=== PATIENT | female | born 1950 | race Caucasian/White ===

== ENCOUNTER 2025-06-04 11:57 | Emergency (ER) | payer MEDICARE, OTHER, SELFPAY ==
[2025-06-04 12:05] VITALS: BP 180/92; PULSE 61; TEMP 36.8; O2SAT 99; BMI 29.1
--- OUTSIDE RECORDS SUMMARY | 2025-06-04 12:12 | XMS_ITS | Encounter Summary ---
Author Organization [facility] Address [address] [place] [address] Care Team Providers Care Database Engineer Name Role Phone Katya Sepulveda MD Unavailable Katya Sepulveda MD Primary Care Provider [phone] Reason for Visit * ReasonCommentsMed Refill Encounter Details DateTypeDepartmentCare Team (Latest Contact Info)Lkzebkpflia12/19/2025Refill [facility] [address] [place] [id number] Katya Sepulveda MD [address] [place] [address] Primary hypertension Social History Tobacco UseTypesPacks/DayYears UsedDateSmoking Tobacco: NeverSmokeless Tobacco: NeverAlcohol UseStandard Drinks/WeekCommentsNever0 (1 standard drink = 0.6 oz pure alcohol)B1300 Health LiteracyAnswerDate RecordedHow often do you need to have someone help you when you read instructions, pamphlets, or other written material from your doctor or pharmacy?Never03/22/2024Social Connection and Isolation PanelAnswerDate RecordedIn a typical week, how many times do you talk on the phone with family, friends, or neighbors?More than three times a week 03/22/2024How often do you get together with friends or relatives?Patient pzejvrag50/19/2024How often do you attend confucianism or church services?Patient wuqgxuia82/19/2024ctive Member of Clubs or OrganizationsNot on file03/22/2024 How often do you attend meetings of the clubs or organizations you belong to? Patient hkkufowi95/19/2024re you , , , , never , or living with a partner?Rdoxytj6203/22/2024UDIT-CAnswerDate RecordedQ1: How often do you have a drink containing alcohol?Monthly or less03/22/2024Q2: How many drinks containing alcohol do you have on a typical day when you are drinking?Patient does not drink03/22/2024Q3: How often do you have six or more drinks on one occasion?Never03/22/2024[facility] [place] of Occupational Health - Occupational Stress QuestionnaireAnswerDate RecordedDo you feel stress - tense, restless, nervous, or anxious, or unable to sleep at night because yourmind is troubled all the time - these days?Only a oslmsn0203/22/2024Exercise Vital Sign AnswerDate RecordedOn average, how many days per week do you engage in moderate to strenuous exercise (like a brisk walk)?2 days03/22/2024On average, how many minutes do you engage in exercise at this level?20 min03/22/2024Housing Stability Vital SignAnswerDate RecordedIn the last 12 months, was there a time when you were not able to pay the mortgage or rent on time?No03/22/2024In the past 12 months, how many times have you moved where you were living? At any time in the past 12 months, were you homeless or living in a senior living (including now)?No03/22/2024CommentsNoSex and Gender InformationValue Date RecordedSex Assigned at FxmywMjnsel47/13/2024 9:10 AM EDTLegal SexFemale 10/16/2022 6:48 PM EDTGender GelkgncyHtacaa37/13/2024 9:10 AM EDTSexual BghlxxophlzXlusofpt42/13/2024 9:10 AM EDTdocumented as of this encounter Miscellaneous Notes * Telephone Encounter - Radha Fernandes NP - 05/22/2025 1:38 PM EDT NIKOLAY BOBBY, rx sent. documented in this encounter Plan of Treatment Not on file documented as of this encounter Visit Diagnoses Diagnosis Primary hypertension Unspecified essential hypertension documented in this encounter Care Teams Team MemberRelationshipSpecialtyStart DateEnd Date Katya Sepulveda MD [address] [place] [address] PCP - [facility]12/26/22 Katya Sepulveda MD [address] [place] [address] PCP - GeneralFamily Medicine03/23/24documented as of this encounter
--- OUTSIDE RECORDS SUMMARY | 2025-06-04 12:12 | XMS_ITS | Clinical Summary ---
Author Organization [facility] Address [address] [place] [address] Care Team Providers Care Hand Spray Operator Name Role Phone Katya Sepulveda MD Unavailable [phone] Katya Sepulveda MD Primary Care Provider [phone] Allergies Active AllergyReactionsCriticalityNoted DateCommentsAmoxicillin-Pot Clavulanate RjyeNuj8203/23/20245194Koalyscfsgmd22/20/2024 Other Reaction(s): breathing difficulty Medications MedicationSigDispense QuantityRefillsLast FilledStart DateEnd DateStatus atenolol (Tenormin) 25 MG tablet Indications:Primary hypertensionTake 1 tablet (25 mg) by mouth in the morning and 1 tablet (25 mg) before bedtime. 180 tablet ctive hydroCHLOROthiazide (HYDRODiuril) 12.5 MG tablet Indications:Primary hypertensionTake 1 tablet (12.5 mg) by mouth Daily 90 tablet ctive levothyroxine (Synthroid, Levoxyl) 112 MCG tablet Indications:Hypothyroidism, unspecified typeTAKE 1 TABLET BY MOUTH EVERY DAY 90 tablet 5Active losartan (Cozaar) 100 MG tablet Indications:Primary hypertensionTAKE 1 TABLET BY MOUTH EVERY DAY 90 tablet 1105Active losartan (Cozaar) 100 MG tablet Indications:Primary hypertensionTake 1 tablet (100 mg) by mouth Daily 90 tablet Discontinued Active Problems ProblemNoted DateDiagnosed DateEssential qeldvgvspbaw20/20/2024Hypothyroidism 03/23/2024ongenital thujybudtqy33/20/2024 Encounters DateTypeDepartmentCare JsoyRzzphfwpdfq26/19/2025Refill [facility] [address] [place] [address] Katya Sepulveda MD Primary ucdivwnjmozh36/14/2025Refill [facility] [address] [place] [address] Katya Sepulveda MD Primary hypertensionfrom Last 3 Months Social History Tobacco UseTypesPacks/DayYears UsedDateSmoking Tobacco: NeverSmokeless Tobacco: Never Tobacco Cessation:Counseling Given: Not Answered Alcohol UseStandard Drinks/WeekCommentsNever0 (1 standard drink = 0.6 [...] you get together with friends or relatives?Patient qggqwerh43/19/2024How often do you attend restorationism or druze services?Patient ywvomvlu49/19/2024ctive Member of Clubs or OrganizationsNot on file03/22/2024 How often do you attend meetings of the clubs or organizations you belong to? Patient rducrqil38/19/2024re you , , , , never , or living with a partner?Lhcogna2303/22/2024UDIT-CAnswerDate RecordedQ1: How often do you have a drink containing alcohol?Monthly or less03/22/2024Q2: How many drinks containing alcohol do you have on a typical day when you are drinking?Patient does not drink03/22/2024Q3: How often do you have six or more drinks on one occasion?Never03/22/2024[facility] [place] of Occupational Health - Occupational Stress QuestionnaireAnswerDate RecordedDo you feel stress - tense, restless, nervous, or anxious, or unable to sleep at night because yourmind is troubled all the time - these days?Only a rprekt9903/22/2024Exercise Vital Sign AnswerDate RecordedOn average, how many [...] were you homeless or living in a intermediate (including now)?No03/22/2024CommentsNoSex and Gender InformationValue Date RecordedSex Assigned at UcigkPbhfik70/13/2024 9:10 AM EDTLegal SexFemale 10/16/2022 6:48 PM EDTGender CdkhvukaDjzvtu60/13/2024 9:10 AM EDTSexual UhuekyvxppgXkkxapuk65/13/2024 9:10 AM EDT Last Filed Vital Signs Vital SignReadingTime TakenCommentsBlood Czvpemfa247/80003/23/2024 10:16 AM EDT Mrciq0780/20/2024 10:16 AM ABYXnwuevpwpda06.9 ??C (98.4 ??F)03/23/2024 10:16 AM EDTRespiratory Rate--Oxygen Ezzmfwsusd02%03/23/2024 10:16 AM EDTInhaled Oxygen Concentration--Rxpowi15.5 kg (190 lb 12.8 oz)03/23/2024 10:16 AM ULLPytfeg401.1 cm (5' 5 )03/23/2024 10:16 AM EDTBody Mass Index31.75003/23/2024 10:16 AM EDT Plan of Treatment Health MaintenanceDue DateLast DoneCommentsCT Nhuujhjigbpw1951Colonoscopy 1Colorectal Cancer Gvfjltvmt1951FIT-DNA1950FIT1950 FOBT1950 0446Npjatbbysbxnk1951neumococcal Vaccine: 65+ Years (1 of 2 - PCV)01/12/19704134Jkzbgjlme23, 01/02/2023Influenza Vaccine (#1) 2025 Procedures Procedure NamePriorityDate/TimeAssociated DiagnosisCommentsBI MAMMOGRAM SCREENING TOMOSYNTHESIS APDDDNEWJKyvfoof90/01/2023 8:14 AM EDT from Last 3 Months or Most Recently Relevant to Health Maintenance Results * Bilateral screening mammogram with tomosynthesis (01/02/2023 8:14 AM EDT) Anatomical RegionLateralityModalityBreastBilateralMammography Narrative Authorizing ProviderResult TypeResult StatusKatya Sepulveda MDIMG BI PROCEDURES Final Result from Last 3 Months or Most Recently Relevant to Health Maintenance [place] [id number] Care Teams Team MemberRelationshipSpecialtyStart DateEnd Date Katya Sepulveda MD [address] [place] [address] PCP - [facility]12/26/22 Katya Sepulveda MD [address] [place] [address] PCP - [facility]03/23/24
--- NOTE | 2025-06-04 13:58 | ED.BACK1 ---
HPI HPI - Back Pain/Injury General Chief Complaint: Extremity Problem, Nontraumatic Stated Complaint: LOWER EXTREMITY PAIN Time Seen by Provider: 06/04/25 13:44 Source: patient Mode of arrival: walk-in History of Present Illness HPI Narrative: cc - low back pain with radiation into right lower extremity Two days ago, the patient developed pain in the low back on the right - in the upper buttock. Shortly after she developed pain down into the right thigh. The symptoms have waxed and waned and she called the urgent care and asked for advice - they told her they could only give her motrin and recommended that she go to the ED. She took ibuprofen this morning around 930am. She said that the ibuprofen hasn't helped much. She denied bowel or bladder symptoms - neither incontinence or retention - and denied any leg weakness, numbness, tingling or paralysis. She denied any recent trauma, injury, fall, MVC or any activities that might have caused or contributed to these symptoms. Related Data Home Medications ?Medication ?Instructions ?Recorded ?Confirmed atenolol 25 mg tablet 25 mg PO DAILY 06/04/25 06/04/25 hydrochlorothiazide 12.5 mg tablet 12.5 mg PO DAILY 06/04/25 06/04/25 levothyroxine 112 mcg tablet 112 mcg PO DAILY 06/04/25 06/04/25 losartan 100 mg tablet 100 mg PO DAILY 06/04/25 06/04/25 Previous Rx's ?Medication ?Instructions ?Recorded methocarbamol 750 mg tablet 750 mg PO Q6H PRN pain #30 tabs 06/04/25 methylprednisolone 4 mg tablets in 4 mg PO DAILY #21 ea 06/04/25 a dose pack (Medrol (Edson)) Allergies Allergy/AdvReac Type Severity Reaction Status Date / Time amoxicillin (From Augmentin) Allergy Severe Hives Verified 06/04/25 12:53 clavulanic acid (From Allergy Severe Hives Verified 06/04/25 12:53 Augmentin) PFSH PFSH Social History Little interest or pleasure in doing things: not at all Feeling down, depressed, or hopeless: not at all Exam Narrative Exam Narrative: General:Alert, no acute distress, patient resting comfortably Skin:warm, intact, no pallor noted Head:Normocephalic, atraumatic Eye:Normal conjunctiva Respiratory:No acute distress Abdomen:Normal bowel sounds, soft, nontender, no masses detected. No rebound, guarding, or rigidity noted. Back: inspection of the back shows no obvious deformity, no swelling, no ecchymosis, contusion, abrasion, swelling, erythema, fluctuance or induration. Tenderness noted to right superior buttock and right lower paralumbar area near the SI joint. Straight leg raise on left is negative. Straight leg raise on right is negative. No CVA tenderness noted bilaterally. Musculoskeletal: No deformity noted to bilateral lower extremities.no cyanosis or mottling noted. normal pulses at DP and PT 2+ bilaterally and symmetrically.Normal 5/5 strength at ankles with dorsiflexion and plantar flexion. Patient is able to ambulate. Normal sensation noted to both lower extremities. Neurological: AAOx4, normal sensory and motor observed -symmetrical bilaterally. L5-S1 reflexes intact symmetrically. DTR 2+ at patellar bilaterally. Psychiatric:Cooperative and interactive. Constitutional Vital Signs, click to edit/add: Last Vital Signs Temp 98.2 F 06/04/25 12:05 Pulse 61 06/04/25 12:05 Resp 18 06/04/25 12:05 BP 180/92 H 06/04/25 12:05 Pulse Ox 99 06/04/25 12:05 O2 Del Method Room Air 06/04/25 12:05 Course Vital Signs Vital signs: Vital Signs Temperature 98.2 F 06/04/25 12:05 Pulse Rate 61 06/04/25 12:05 Respiratory Rate 18 06/04/25 12:05 Blood Pressure 180/92 H 06/04/25 12:05 Pulse Oximetry 99 06/04/25 12:05 Oxygen Delivery Method Room Air 06/04/25 12:05 Temperature 98.2 F 06/04/25 12:05 Pulse Rate 61 06/04/25 12:05 Respiratory Rate 18 06/04/25 12:05 Blood Pressure 180/92 H 06/04/25 12:05 Pulse Oximetry 99 06/04/25 12:05 Oxygen Delivery Method Room Air 06/04/25 12:05 MDM - Back Pain/Injury MDM Narrative Medical decision making narrative: Patient's presentation is consistent with acute low back strain with associated sciatica symptoms and radiculopathy into the right lower extremity. No trauma. No midline bony vertebral tenderness to necessitate imaging at this time. Patient symptoms are waxing and waning and variable from mild to moderate. It seems that certain activities seem to exacerbate it. Exam does not reveal any neurosurgical emergency. The patient and I talked about the exam findings, her complaint as well as her diagnosis and plan for treatment. She was prescribed methocarbamol and a Medrol Dosepak. She has an appoint with her primary care provider coming up next week. I encouraged her to return to the emergency department if her symptoms worsened. Discharge Plan Discharge Chief Complaint: Extremity Problem, Nontraumatic Clinical Impression: Sciatica of right side, Low back pain Patient Disposition: Home, Self-Care Time of Disposition Decision: 13:59 Prescriptions / Home Meds: New methocarbamol 750 mg tablet 750 mg PO Q6H PRN (Reason: pain) Qty: 30 0RF methylprednisolone [Medrol (Edson)] 4 mg tablets,dose pack 4 mg PO DAILY Qty: 21 0RF No Action atenolol 25 mg tablet 25 mg PO DAILY hydrochlorothiazide 12.5 mg tablet 12.5 mg PO DAILY losartan 100 mg tablet 100 mg PO DAILY levothyroxine 112 mcg tablet 112 mcg PO DAILY Print Language: [place] Instructions: Sciatica (ED), Back Pain (ED), Lower Back Exercises (ED) Referrals: HUDSON MAGALLON [Primary Care Provider] - 1 week
== END 2025-06-04 14:15 | disposition home or self-care (01) ==
PROVIDERS: Emergency Provider Emergency Medicine
DX: M54.41 Lumbago with sciatica, right side (principal)
CPT/HCPCS: 99283